=== PATIENT | male | born 1995 | race Caucasian/White ===

== ENCOUNTER 2019-02-27 13:59 | Emergency (ER) | payer SELFPAY ==
[~2019-02-27] VITALS: Ht 175.3 cm; Wt 61.2 kg
[2019-02-27 14:22] VITALS: BP 122/64
--- NOTE | 2019-02-27 14:34 | PHYS DOC ---
Past Medical History Past Medical History: Other Additional Past Medical Histor: ADHD,std Past Surgical History: No Surgical History, Other Additional Past Surgical Histo: right elbow Alcohol Use: Heavy Drug Use: Marijuana Adult General Chief Complaint Chief Complaint: SEXUALLY TRANSMITTED DISEASE HPI HPI 23-year-old male presents to ER via POV with complaints of hematuria and discharge in his urine. Patient states he has been actually active and has not used condoms. Patient denies any rash or lesions on his genitals. Patient states he has had some lower abdominal pain intermittently over the past several days. Patient denies any nausea or vomiting. He denies fever or diarrhea episodes. Patient states last night he was giving a urine specimen for a drug test and so he pinched off the end of his penis shaft in orders to stop the urine flow. Patient reports he has done that in the past and has never had any issues. Patient states he is more concerning for sexually transmitted disease although his partners have not reported to him of any testing or issues. She denies having any dysuria or difficulty urinating. Review of Systems Review of Systems Constitutional: Denies fever or chills [] Eyes: Denies change in visual acuity, redness, or eye pain [] HENT: Denies nasal congestion or sore throat [] Respiratory: Denies cough or shortness of breath [] Cardiovascular: No additional information not addressed in HPI [] GI: Denies nausea, vomiting, bloody stools or diarrhea. Reports intermittent lower abd pain- denies currently : Denies dysuria. Reports hematuria w/discharge in his urine Musculoskeletal: Denies back pain or joint pain [] Integument: Denies rash or skin lesions [] Neurologic: Denies headache, focal weakness or sensory changes [] All other systems were reviewed and found to be within normal limits, except as documented in this note. Current Medications Current Medications Current Medications Medications (Trade) Dose Ordered Sig/Radha Start Time Stop Time Status Last Admin Dose Admin Azithromycin (Zithromax) 1,000 mg 1X ONCE 02/27/19 15:30 02/27/19 15:31 DC Ceftriaxone Sodium (Rocephin Im) 250 mg 1X ONCE 02/27/19 15:30 02/27/19 15:31 DC Allergies Allergies Allergies Coded Allergies Type Severity Reaction Last Updated Verified No Known Drug Allergies 11/07/13 No Physical Exam Physical Exam Constitutional: Well developed, well nourished, no acute distress, non-toxic appearance. [] HENT: Normocephalic, atraumatic, oropharynx moist, nose normal. [] Eyes: Pupils equal, conjunctiva normal, no discharge. [] Neck: Normal range of motion, no tenderness, supple, no stridor. [] Cardiovascular: Heart rate regular rhythm, no murmur [] Lungs & Thorax: Bilateral breath sounds clear to auscultation. Resp. equal/nonlabored Abdomen: Bowel sounds normal, soft, no tenderness/distention Skin: Warm, dry, no erythema, no rash. [] Back: No tenderness, no CVA tenderness. [] Extremities: No tenderness, no cyanosis, no clubbing, ROM intact, no edema. [] Neurologic: Alert and oriented X 3, normal motor function, normal sensory function, no focal deficits noted. [] Psychologic: Affect normal, judgement normal, mood normal. [] Current Patient Data Vital Signs Vital Signs Date Time Temp Pulse Resp B/P (MAP) Pulse Ox O2 Delivery O2 Flow Rate FiO2 02/27/19 14:22 98.1 69 16 122/64 (83) 100 Room Air 98.1 Lab Values Laboratory Tests Test 02/27/19 14:25 Urine Collection Type Unknown Urine Color Yellow Urine Clarity Turbid Urine pH 7.5 Urine Specific [place] 1.015 Urine Protein Negative mg/dL (NEG-TRACE) Urine Glucose (UA) Negative mg/dL (NEG) Urine Ketones (Stick) Negative mg/dL (NEG) Urine Blood Negative (NEG) Urine Nitrite Negative (NEG) Urine Bilirubin Negative (NEG) Urine Urobilinogen Dipstick 0.2 mg/dL (0.2 mg/dL) Urine Leukocyte Esterase Negative (NEG) Urine RBC 0 /HPF (0-2) Urine WBC 0 /HPF (0-4) Urine Squamous Epithelial Cells Occ /LPF Urine Amorphous Sediment Present /HPF Urine Bacteria 0 /HPF (0-FEW) EKG EKG [] Radiology/Procedures Radiology/Procedures [] Course & Med Decision Making Course & Med Decision Making Pertinent Labs reviewed. (See chart for details) 1520: Patient was evaluated in the ER for complaints of hematuria and discharge in his urine. Patient states he has been sexually active unprotected and had concerns for STDs. Patient did not want exam he was denying any penile or genital lesions or rash. Patient requested STD testing and prophylactic treatment. UA was negative for infection and blood. Patient advised test results would return in 2-3 days and he should follow-up on those results. Patient advised on condom use and safe sex practices. Patient will be treated with IM Rocephin and azithromycin PO. Advised on follow-up with primary care physician with any concerns and for reevaluation. Education provided on signs and symptoms to return to ER for. Patient encouraged to increase fluid intake. Dragon Disclaimer Dragon Disclaimer This electronic medical record was generated, in whole or in part, using a voice recognition dictation system. Departure Departure Impression: Primary Impression: Concern about STD in male without diagnosis Disposition: 01 HOME, SELF-CARE Condition: STABLE Referrals: ERNST MICHAEL MD (PCP) Patient Instructions: Safe Sex, Sexually Transmitted Disease Additional Instructions: You are being provided information on sexually transmitted diseases as her tests are still pending. You chose to have prophylactic treatment while in the Emergency Department. Follow- up with your primary doctor if symptoms or with concerns. Drink plenty of fluids. Follow-up on STD test results in 2-3 days. LARRY BENAVIDES APRN February 27, 2019 14:34
[2019-02-27 14:53] LABS: BILIRUBIN,URINE NEGATIVE (NEG); CLARITY,URINE TURBID; COLOR,URINE YELLOW; NITRITE,URINE NEGATIVE (NEG); PH,URINE 7.5; PROTEIN,URINE NEGATIVE (NEG-TRACE); UROBILINOGEN,URINE 0.2 mg/dL (0.2 mg/dL)
[2019-02-27 15:03] LABS: AMORPHOUS SEDIMENT,UR PRESENT /HPF; BACTERIA,URINE 0 /HPF (0-FEW); RBC,URINE 0 /HPF (0-2); SQUAMOUS EPITHELIAL CELL,UR OCC /LPF; WBC,URINE 0 /HPF (0-4)
[2019-02-27] MEDS ORDERED: AZITHROMYCIN 250 MG TABLET. PO ONE (15:30)
[2019-02-27] MEDS ORDERED: cefTRIAXone IM 250 MG VIAL IM ONE (15:30)
== END 2019-02-27 16:11 | disposition home or self-care (01) ==
LOC: ER 13:59
DX: Z20.2 Contact with and (suspected) exposure to infections with a predominantly sexual mode of transmission (principal); R31.9 Hematuria, unspecified; R10.30 Lower abdominal pain, unspecified; F10.20 Alcohol dependence, uncomplicated; Y90.9 Presence of alcohol in blood, level not specified
CPT/HCPCS: 81001; 87491; 87591; 96372; 99284; J0696; Q0144

== ENCOUNTER 2019-05-22 14:11 | Emergency (ER) | payer SELFPAY ==
[~2019-05-22] VITALS: Ht 170.2 cm; Wt 72.6 kg
--- NOTE | 2019-05-22 16:14 | EKG ---
[facility] [address] [place] [address] Test Date: 2019-05-22 Test Time: 15:25:07 Pat Name: ANAND ROSS Department: Room: Gender: M Country Sales Manager: : 1995 Requested By: JOAN DAVIDSON Order Number: [id number] Reading MD: Measurements Intervals [place] Rate: 59 P: -27 [place]: 152 QRS: 67 QRSD: 86 T: 44 QT: 394 QTc: 394 Interpretive Statements SINUS RHYTHM S1,S2,S3 PATTERN NO SPECIFIC ECG ABNORMALITIES RI6.01 No previous ECG available for comparison
[2019-05-22 16:30] VITALS: BP 129/73
[2019-05-22] MEDS ORDERED: IV NORMAL SALINE 1000ML BAG 1,000 ML IV SCH (16:50)
[2019-05-22] MEDS ORDERED: ONDANSETRON PF 4 MG/2 ML VIAL. IV ONE (17:00)
== END 2019-05-22 17:03 | disposition left against medical advice (07) ==
LOC: ER 14:11
DX: R42 Dizziness and giddiness (principal); R11.2 Nausea with vomiting, unspecified; R06.02 Shortness of breath
CPT/HCPCS: 93005; 99281; 99283; 99284